=== PATIENT | female | born 1980 | race Caucasian/White ===

== ENCOUNTER 2017-09-04 15:18 | Emergency (ER) | payer MEDICARE ==
[~2017-09-04] VITALS: Ht 165.1 cm; Wt 70.8 kg
[2017-09-04 15:26] VITALS: BP 153/96
[2017-09-04] MEDS ORDERED: KETOROLAC 60 MG/2 ML VIAL. IM ONE (16:00)
[2017-09-04] MEDS ORDERED: NAPR-514 PO (16:14)
[2017-09-04] MEDS ORDERED: HYDR-971 PO (16:14)
--- NOTE | 2017-09-04 16:14 | PHYS DOC ---
Past History Past Medical History: Diabetes, Endometriosis Smoking: Cigarettes Alcohol Use: None Drug Use: Marijuana Adult General Chief Complaint Chief Complaint: PELVIC PAIN HPI HPI 36-year-old female patient with history of endometriosis states her IUD was removed after [address] 1 month ago and she had her first menstruation yesterday and since then has had lower abdominal and pelvic pain with radiation to her back as a severe sharp pain associated with nausea. Patient denies vaginal discharge, vomiting, and chills, diarrhea and constipation, urinary symptom. Patient states she has appointment with her physician in 3 days and wants some pain medication until seen by his physician. Review of Systems Review of Systems Constitutional: Denies fever or chills [] Eyes: Denies change in visual acuity, redness, or eye pain [] HENT: Denies nasal congestion or sore throat [] Respiratory: Denies cough or shortness of breath [] Cardiovascular: No additional information not addressed in HPI [] GI: Reports nausea, denies abdominal pain, vomiting, bloody stools or diarrhea [ ] : Denies dysuria or hematuria [] Musculoskeletal: Denies back pain or joint pain [] Integument: Denies rash or skin lesions [] Neurologic: Denies headache, focal weakness or sensory changes [] Endocrine: Denies polyuria or polydipsia [] All other systems were reviewed and found to be within normal limits, except as documented in this note. Current Medications Current Medications Current Medications Medications (Trade) Dose Ordered Sig/Sarwat Start Time Stop Time Status Last Admin Dose Admin Ketorolac Tromethamine (Toradol) 60 mg 1X ONCE 09/04/17 16:00 09/04/17 16:01 UNV Physical Exam Physical Exam Constitutional: Well developed, well nourished,mild distress, non-toxic appearance. [] HENT: Normocephalic, atraumatic Eyes: PERRLA, EOMI, conjunctiva normal, no discharge. [] Neck: Normal range of motion, no tenderness, supple, no stridor. [] Cardiovascular:Heart rate regular rhythm, no murmur [] Lungs & Thorax: Bilateral breath sounds clear to auscultation [] Abdomen: Bowel sounds normal, soft, no tenderness, no masses, no pulsatile masses. [] Skin: Warm, dry, no erythema, no rash. [] Back: No tenderness, no CVA tenderness. [] Extremities: No tenderness, no cyanosis, no clubbing, ROM intact, no edema. [] Neurologic: Alert and oriented X 3, normal motor function, normal sensory function, no focal deficits noted. [] Psychologic: Anxious, judgement normal, mood normal. [] Current Patient Data Vital Signs Vital Signs Date Time Temp Pulse Resp B/P (MAP) Pulse Ox O2 Delivery O2 Flow Rate FiO2 09/04/17 15:26 98.3 95 16 98 Room Air EKG EKG [] Radiology/Procedures Radiology/Procedures [] Course & Med Decision Making Course & Med Decision Making discharge: I've spoken with the patient and/or caregivers. I've explained the patient's condition, diagnosis and treatment plan based on information available to me at this time. I've answered the patient's and/or caregivers questions and addressed any concerns. The patient and/or caregivers have a good understanding the patient's diagnosis, condition and treatment plan as can be expected at this point. Vital signs have been stabilized. The patient's condition is stable for discharge from the emergency department. The patient will pursue further outpatient evaluation with her primary care provider or other designated consulting physician as outlined in the discharge instructions. Patient and/or caregivers are agreeable to this plan of care and follow-up instructions have been explained in detail. The patient and/or caregivers have received these instructions in written format and expressed understanding of these discharge instructions. The patient and her caregivers are aware that if any significant change in condition or worsening of symptoms should prompt him to immediately return to this of the closest emergency department. If an emergent department is not readily available I would encourage him to call 911. Albino Disclaimer Albino Disclaimer This electronic medical record was generated, in whole or in part, using a voice recognition dictation system. Departure Departure: Impression: Primary Impression: Pelvic pain Additional Impressions: Endometriosis Tobacco abuse Tobacco abuse counseling Disposition: HOME, SELF-CARE (ZAt 1620) Condition: IMPROVED Referrals: NON,STAFF (PCP) Patient Instructions: Endometriosis, Pelvic Pain, Female Additional Instructions: Drink plenty of liquids Follow-up with your primary care physician in 3-5 days Return to ER if not getting better Scripts Naproxen (NAPROXEN) 500 Mg Tablet 1 TAB PO BID, #20 TAB 1 Refill Prov: KOFFI MARTINEZ MD 09/04/17 Hydrocodone Bit/Acetaminophen (NORCO 5-325 TABLET) 1 Each Tablet 1 TAB PO PRN Q6HRS PRN for PAIN, #10 TAB 0 Refills Prov: KOFFI MARTINEZ MD 09/04/17 Problem Qualifiers KOFFI MARTINEZ MD September 04, 2017 16:14
== END 2017-09-04 16:21 | disposition home or self-care (01) ==
LOC: ER 15:18
DX: N80.9 Endometriosis, unspecified (principal); E11.9 Type 2 diabetes mellitus without complications; F17.210 Nicotine dependence, cigarettes, uncomplicated; F12.10 Cannabis abuse, uncomplicated
CPT/HCPCS: 96372; 99283; J1885

== ENCOUNTER 2017-09-15 19:21 | Emergency (ER) | payer MEDICARE ==
[~2017-09-15] VITALS: Ht 165.1 cm; Wt 72.6 kg
[~2017-09-15 19:21] MED LIST: HYDR-971 PO; NAPR-514 PO
[2017-09-15] MEDS ORDERED: LORazepam 2 MG/ML VIAL IV ONE (19:45)
[2017-09-15] MEDS ORDERED: KETOROLAC 15 MG/ML VIAL. IV ONE (19:45)
--- NOTE | 2017-09-15 19:48 | PHYS DOC ---
Past History Past Medical History: Anxiety, Bipolar, Depression, Diabetes, Endometriosis, Other Past Surgical History: Other Smoking: Cigarettes Alcohol Use: Occasionally Drug Use: None Adult General Chief Complaint Chief Complaint: CHEST PAIN HPI HPI Patient is a 36-year-old female presented to the emergency room with chest pain. Brought in by ambulance chest pain started 2 [address] 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 It's worse with deep breathing worse with moving or twisting it was increased when she was resting lying in bed no fever radiates to the right arm. She has a past medical history of type 1 diabetes and asthma medications include statin NovoLog Valium tramadol Lexapro no allergies positive tobacco no alcohol occasional marijuana no family history of coronary artery disease some relief with nitroglycerin aspirin fentanyl by EMS she has had a cough recently. Review of Systems Review of Systems Constitutional: Denies fever or chills [] Eyes: Denies change in visual acuity, redness, or eye pain [] HENT: Denies nasal congestion or sore throat [] Respiratory: Negative for shortness of breath positive for recent cough for the last 2 weeks mostly dry Musculoskeletal: Denies back pain or joint pain [] Integument: Denies rash or skin lesions [] All other systems were reviewed and found to be within normal limits, except as documented in this note. Current Medications Current Medications Current Medications Medications (Trade) Dose Ordered Sig/Sarwat Start Time Stop Time Status Last Admin Dose Admin Ketorolac Tromethamine (Toradol) 15 mg 1X ONCE 09/15/17 19:45 09/15/17 19:46 Lorazepam (Ativan) 1 mg 1X ONCE 09/15/17 19:45 09/15/17 19:46 Allergies Allergies Allergies Coded Allergies Type Severity Reaction Last Updated Verified No Known Drug Allergies 09/04/17 No Physical Exam Physical Exam Constitutional: Well developed, well nourished, no acute distress, non-toxic appearance. [] HENT: Normocephalic, atraumatic, bilateral external ears normal, oropharynx moist, no oral exudates, nose normal. [] Eyes: PERRLA, EOMI, conjunctiva normal, no discharge. [] Neck: Normal range of motion, no tenderness, supple, no stridor. [] Cardiovascular:Heart rate regular rhythm, no murmur [] Lungs & Thorax: Bilateral breath sounds clear to auscultation []chest wall tenderness is noted that reproduces her pain at the right rib sternal border. Abdomen: Bowel sounds normal, soft, no tenderness, no masses, no pulsatile masses. [] Skin: Warm, dry, no erythema, no rash. [] Back: No tenderness, no CVA tenderness. [] Extremities: No tenderness, no cyanosis, no clubbing, ROM intact, no edema. [] Neurologic: Alert and oriented X 3, normal motor function, normal sensory function, no focal deficits noted. [] Psychologic: Anxiety and tearfulness is noted Current Patient Data Vital Signs Vital Signs Date Time Temp Pulse Resp B/P (MAP) Pulse Ox O2 Delivery O2 Flow Rate FiO2 09/15/17 19:25 98.2 77 20 98 Room Air Blood pressure was 110 systolic EKG EKG []EKG shows a normal sinus rhythm rate of 77 no acute ischemic changes noted interpreted by me the time of encounter. Radiology/Procedures Radiology/Procedures [] Course & Med Decision Making Course & Med Decision Making Pertinent Labs and Imaging studies reviewed. (See chart for details) 36-year-old female with a history of type 1 diabetes who is presenting to the emergency room with chest pain. It sounds fairly atypical for acute coronary syndrome it is definitely reproducible on examination and has a pleuritic and positional component. She does have the risk factor of type 1 diabetes and tobacco so therefore we will do serial troponins d-dimer to evaluate for PE given the pleuritic component and go from there. It really does not sound like a dissection to me. NOTED LEUKOCYTOSIS NO EVIDENCE OF PNA ON CXR ADD URINE. COULD BE STRESS REACTION NO ABDOMINAL TTP AT THIS TIME. ADDENDUM Addendum: The study was not performed as dedicated dissection protocol. Thoracic aorta is within normal limits in caliber. No apparent intimal flap or periaortic fluid collection is identified. No evidence of dissection. Electronically signed by: Yao Newberry MD (09/15/2017 10:23 PM) [facility] DICTATED AND SIGNED BY: YAO NEWBERRY MD DATE: 09/15/172221 CC: HELLEN CALLEJAS MD; NON,STAFF ~ CT ANGIOGRAPHY CHEST dated 09/15/2017 9:16 PM Indication: Chest pain, shortness of breathGave Omni 300 75ml iv - tolerated well
chest pain - mostly right side into right arm
shortness of breath. Comparison: No comparison is available. Technique: Contiguous axial imaging of the chest performed following the intravenous administration of 75 cc Omnipaque 300. Study performed as dedicated PE protocol with thin cut coronal MIPS 3-D reconstruction. One or more of the following individualized dose reduction techniques were utilized for this examination: 1. Automated exposure control 2. Adjustment of the mA and/or kV according to patient size 3. Use of iterative reconstruction technique Findings: Contrast bolus is adequate. No evidence of central, lobar or segmental pulmonary embolus. Subsegmental branches are not well evaluated based on technique. Heart size within normal limits. No pericardial effusion. No mediastinal, hilar or axillary lymphadenopathy. Thyroid gland unremarkable. Central airways are patent. Mild diffuse bronchial wall thickening. Dependent opacity in the lung bases, likely atelectasis. Mild emphysema. No pleural effusion or pneumothorax. Limited images of the upper abdomen show no significant abnormality. No acute bony abnormality. IMPRESSION: 1. No evidence of central, lobar or segmental pulmonary embolus. 2. Dependent opacity of the lower lobes, likely atelectasis. 3. Nonspecific mild diffuse bronchial wall thickening. Consider acute or chronic bronchial inflammatory process Electronically signed by: Yao Newberry MD (09/15/2017 10:07 PM) [facility] The patient was observed in the emergency room for several hours no events on monitor she said that her chest pain was much much better as of 2300 on reevaluation a series of 3 troponins have been negative EKG showed no ischemia CT scan was negative for PE or dissection. Possible bronchitis changes on CT as noted above patient has been coughing and does have a leukocytosis with a history of diabetes up her prescription for doxycycline was given. Blood pressure is looking good and I think the patient is not hypoxic and appears stable for outpatient management. Advised to follow-up with primary care doctor in the next few days for reevaluation return precautions to the emergency room were discussed well. Dragon Disclaimer Dragon Disclaimer This electronic medical record was generated, in whole or in part, using a voice recognition dictation system. Departure Departure: Impression: Primary Impression: Bronchitis Disposition: 01 HOME, SELF-CARE Condition: IMPROVED Referrals: NON,STAFF (PCP) Scripts Doxycycline Hyclate (DOXYCYCLINE HYCLATE) 100 Mg Tablet 1 TAB PO BID, #14 TAB Prov: HELLEN CALLEJAS MD 09/15/17 HELLEN CALLEJAS MD September 15, 2017 19:48
[2017-09-15 20:00] LABS: BASO # 0.1 x10^3/uL (0.0-0.2); BASO % 0 % (0-3); EOS # 0.2 x10^3/uL (0.0-0.7); EOS % 1 % (0-3); HEMATOCRIT 40.2 % (36.0-47.0); HEMOGLOBIN 13.6 g/dL (12.0-15.5); LYMPH # 4.1 x10^3/uL (1.0-4.8); LYMPH % 22 % (24-48); MEAN CORPUSCULAR HEMOGLOBIN 30 pg (25-35); MEAN CORPUSCULAR HGB CONC 34 g/dL (31-37); MEAN CORPUSCULAR VOLUME 88 fL (79-100); MONO # 1.2 x10^3/uL (0.0-1.1); MONO % 6 % (0-9); NEUT # 13.3 x10^3uL (1.8-7.7); NEUT % 71 % (31-73); PLATELET COUNT 296 x10^3/uL (140-400); RED BLOOD COUNT 4.57 x10^6/uL (3.50-5.40); RED CELL DISTRIBUTION WIDTH 13.2 % (11.5-14.5); WHITE BLOOD COUNT 18.9 x10^3/uL (4.0-11.0)
[2017-09-15 20:19] LABS: ALBUMIN 3.5 g/dL (3.4-5.0); CALCIUM 8.7 mg/dL (8.5-10.1); CREATININE 0.4 mg/dL (0.6-1.0); GFR 179.6; POTASSIUM 3.4 mmol/L (3.5-5.1); TOTAL BILIRUBIN 0.2 mg/dL (0.2-1.0); TOTAL PROTEIN 6.9 g/dL (6.4-8.2)
[2017-09-15 20:24] LABS: PREG TEST PT QUAL NEGATIVE (NEG)
--- NOTE | 2017-09-15 20:46 | RAD ---
PORTABLE CHEST 1V dated 09/15/2017 7:42 PM. Comparison: None. Clinical Indication: SUDDEN ONSET OF CHEST PAIN AND SHORTNESS OF BREATH X 2 HOURS AGO. Findings: Single upright portable exam performed. Heart and mediastinal contours are within normal limits. Lungs are clear without focal consolidation. Vascular interstitium within normal limits. No pleural effusion or pneumothorax. Impression: Negative portable chest. Electronically signed by: Yao Newberry MD (09/15/2017 8:43 PM) [facility]
[2017-09-15 21:28] LABS: BACTERIA,URINE 0 /HPF (0-FEW); BILIRUBIN,URINE NEG (NEG); CLARITY,URINE CLEAR; COLOR,URINE STRAW; GLUCOSE,URINE NEG (NEG); NITRITE,URINE NEG (NEG); SQUAMOUS EPITHELIAL CELL,UR FEW /LPF; UROBILINOGEN,URINE 0.2 mg/dL (0.2 mg/dL)
[2017-09-15] MEDS ORDERED: IOHEXOL 300 MG/ML 75 ML VIAL. IV ONE (21:30)
--- NOTE | 2017-09-15 21:56 | EKG ---
[address] [address] Test Date: 2017-09-15 Test Time: 19:21:45 Pat Name: GLENN ZAMUDIO Department: Room: Gender: F Relief Manager: : 1980 Requested By: HELLEN CALLEJAS Order Number: [id number] Reading MD: Measurements Intervals [place] Rate: 77 P: 33 TX: 138 QRS: 63 QRSD: 82 T: 68 QT: 392 QTc: 445 Interpretive Statements SINUS RHYTHM NORMAL ECG RI6.01 No previous ECG available for comparison
[2017-09-15 22:09] LABS: % EOS 1 % (0-5); % LYMPHS 19 % (24-48); % MONOS 6 % (0-10); % SEGS 74 % (35-66); PLT ESTIMATE ADEQUATE (ADEQUATE)
--- NOTE | 2017-09-15 22:10 | RAD ---
CT ANGIOGRAPHY CHEST dated 09/15/2017 9:16 PM Indication: Chest pain, shortness of breathGave Omni 300 75ml iv - tolerated well
chest pain - mostly right side into right arm
shortness of breath. Comparison: No comparison is available. Technique: Contiguous axial imaging of the chest performed following the intravenous administration of 75 cc Omnipaque 300. Study performed as dedicated PE protocol with thin cut coronal MIPS 3-D reconstruction. One or more of the following individualized dose reduction techniques were utilized for this examination: 1. Automated exposure control 2. Adjustment of the mA and/or kV according to patient size 3. Use of iterative reconstruction technique Findings: Contrast bolus is adequate. No evidence of central, lobar or segmental pulmonary embolus. Subsegmental branches are not well evaluated based on technique. Heart size within normal limits. No pericardial effusion. No mediastinal, hilar or axillary lymphadenopathy. Thyroid gland unremarkable. Central airways are patent. Mild diffuse bronchial wall thickening. Dependent opacity in the lung bases, likely atelectasis. Mild emphysema. No pleural effusion or pneumothorax. Limited images of the upper abdomen show no significant abnormality. No acute bony abnormality. IMPRESSION: 1. No evidence of central, lobar or segmental pulmonary embolus. 2. Dependent opacity of the lower lobes, likely atelectasis. 3. Nonspecific mild diffuse bronchial wall thickening. Consider acute or chronic bronchial inflammatory process Electronically signed by: Yao Newberry MD (09/15/2017 10:07 PM) [facility]
[2017-09-15 22:26] VITALS: BP 100/56
[2017-09-15] MEDS ORDERED: DOXY100T PO (23:12)
[2017-09-15] MEDS ORDERED: DOXYCYCLINE HYCLATE 100 MG TABLET PO ONE (23:30)
== END 2017-09-15 23:23 | disposition home or self-care (01) ==
LOC: ER 19:21
DX: J40 Bronchitis, not specified as acute or chronic (principal); J45.909 Unspecified asthma, uncomplicated; E10.9 Type 1 diabetes mellitus without complications; F41.9 Anxiety disorder, unspecified; F31.9 Bipolar disorder, unspecified; F17.210 Nicotine dependence, cigarettes, uncomplicated; F12.90 Cannabis use, unspecified, uncomplicated; Z79.1 Long term (current) use of non-steroidal anti-inflammatories (NSAID); Z79.899 Other long term (current) drug therapy
CPT/HCPCS: 36415; 71045; 71275; 80053; 81001; 82947; 83690; 84484; 84703; 85007; 85025; 85379; 85610; 93005; 96374; 96375; 99285; J1885; J2060; Q9967